=== PATIENT | female | born 1995 | race Caucasian/White ===

== ENCOUNTER 2017-05-23 20:58 | Emergency (ER) | payer MEDICAID ==
--- NOTE | 2017-05-23 21:58 | PD ---
HPI Chief Complaint ctx, pressure, decr FM Date Seen: May 23, 2017 Time Seen: 21:51 Travel History International Travel<30 Days: No Contact w/Intl Traveler<30Days: No Known Affected Area: No History of Present Illness HPI Pt is a 22y/o G1 @ 39.4wks. She has PNC with a caterers helper group in [place]. She states that she has had vaginal pressure and decreased FM and was advised to come to the hospital. She was seen by her group and states she was told that she was 2cm (unchanged over time) and the baby was fine and sent her home. Pt states that she is not happy with the care she received there and does not trust them. She came here for evaluation. She denies LOF. Had some spotting after recent check. Weeks Gestation: 39 Para: 0 : 1 History Past Medical History Medical History: Denies Significant Hx Obstetric History Obstetric History 1. current Past Surgical History Surgical History: No Previous Surgery Family History Family History: Negative Social History Alcohol Use: No Tobacco Use: No Substance Abuse: No Allergies-Medications Narrative Medication none Review of Systems Except as stated in HPI: all other systems reviewed are Neg Physical Exam Narrative General: well developed, well nourished, no acute distress HEENT: normocephalic atraumatic, extraocular movements intact, neck supple Abdomen: soft, gravid, nontender, nondistended Uterus: fundus term Extremities: full range of motion Skin: normal coloration, no rashes, no suspicious skin lesions noted Neurologic: cranial nerves 2-12 grossly intact, normal muscle tone, normal gait Psychiatric: normal mood and affect, appropriate FHTs: 150s, +accels (prolonged), single mild variable decel, moderate variability, reactive [place]: occasional ctx Cvx: 2/80/-2 (unchanged) Data Data Vital Signs Reviewed: Yes Orders Orders Vital Signs (Adult) .ON ADMISSION (05/23/17 21:50) ^ Labor Status (05/23/17 21:50) ^ Non Stress Test (05/23/17 21:50) Ed Discharge Order (05/23/17 21:50) MDM Plan 22y/o G1 @ 39.4wks with ctx/pressure, decr FM. -- NST reactive -- cvx unchanged Dispo: pt stable for d/c home with precautions Diagnosis Diagnosis: Primary Impression: 39 weeks gestation of Additional Impressions: Uterine contractions during Decreased movement Erica Shine MD May 23, 2017 21:58
--- NOTE | 2017-05-23 21:59 | PD ---
History of Present Illness History of Present Illness NST Note Indication: decreased FM Baseline: 150 Accelerations: present, prolonged Decelerations: single mild variable btw two prolonged accels Variability: moderate Interpretation: reactive Dispo: stable for d/c home with precautions Erica Shine MD May 23, 2017 21:59
== END 2017-05-23 22:16 | disposition home or self-care (01) ==
LOC: HOBED 20:58
DX: O62.9 Abnormality of forces of labor, unspecified (principal); O36.8130 Decreased fetal movements, third trimester, not applicable or unspecified; Z3A.39 39 weeks gestation of pregnancy
CPT/HCPCS: 59025